=== PATIENT | male | born 1980 | race Two or more races ===

== ENCOUNTER 2020-09-12 17:36 | Observation (INO) | payer MEDICAID, OTHER ==
[~2020-09-12] VITALS: Ht 162.6 cm; Wt 62.4 kg
[2020-09-12 18:50] LABS: Urine Bacteria FEW /hpf (None Seen); Urine Blood Negative /uL (Negative); Urine Budding Yeast MODERATE /hpf (None Seen); Urine Mucus FEW (None Seen); Urine Specific Gravity 1.029 (1.001-1.035); Urine WBC 68 /hpf (0 - 3)
[2020-09-12 19:08] LABS: Eosinophils # (auto) 0 10 ^3/uL (0-0.8); Eosinophils % (auto) 0.2 % (0.0-7.0); Lymphocytes # (auto) 0.4 10 ^3/uL (0.4-5.4)
[2020-09-12 19:10] LABS: Basophils # (auto) 0 10 ^3/uL (0-0.2); Basophils % (auto) 0.3 % (0.0-2.0); Hematocrit 52.2 % (41.0-53.0); Hemoglobin 17.8 g/dL (13.5-17.5); Lymphocytes % (auto) 2.9 % (10.0-50.0); Mean Corpuscular Hemoglobin 29.6 pg (28.0-32.0); Mean Corpuscular Hgb Conc. 34.2 g/dL (32.0-36.0); Mean Corpuscular Volume 86.5 fL (80.0-100.0); Monocytes # (auto) 0.4 10 ^3/uL (0-1.3); Monocytes % (auto) 2.8 % (0.0-12.0); Neutrophils # (auto) 12.4 10 ^3/uL (1.6-8.6); Neutrophils % (auto) 93.8 % (37.0-80.0); Platelet Count (auto) 358 10^3/uL (140-450); Red Blood Cells 6.03 10^6/uL (4.5-5.90); Red Cell Distribution Width 15.3 % (11.8-14.3); White Blood Cell 13.2 10^3/uL (4.4-10.8)
[2020-09-12 19:26] LABS: Albumin 4.1 g/dL (3.4-5.0); Calcium 8.8 mg/dL (8.5-10.1); Potassium 3.9 mmol/L (3.5-5.1)
[2020-09-12 19:44] LABS: BUN/Creatinine Ratio 9.2; Bilirubin, Total 5.9 mg/dL (0.2-1.0); Total Protein 7.8 g/dL (6.4-8.2)
[2020-09-12 23:21] LABS: Alcohol, Urine < 3.0 mg/dL (0-10); Benzodiazephine Screen, Urine NEGATIVE (NEGATIVE); Cocaine Screen, Urine NEGATIVE (NEGATIVE); Phencyclidine Screen, Urine NEGATIVE (NEGATIVE)
[2020-09-12 23:29] LABS: Amphetamine Screen, Urine POSITIVE (NEGATIVE); Barbiturate Scree,Urine NEGATIVE (NEGATIVE); Cannabinoid Screen, Urine NEGATIVE (NEGATIVE); Opiate Scree,Urine NEGATIVE (NEGATIVE)
[2020-09-13 00:03] LABS: Albumin 3.6 g/dL (3.4-5.0); Bilirubin, Direct 2.6 mg/dL (0-0.2); Blood Alcohol < 3.0 mg/dL (0-5)
[2020-09-13 00:12] LABS: Alkaline Phosphatase 151 U/L (45-117); Bilirubin, Total 5.1 mg/dL (0.2-1.0)
[2020-09-13 00:52] LABS: Alanine Aminotransferase 5058 U/L (16-61); Aspartate Aminotransferase 4125 U/L (15-37)
[2020-09-13] MEDS ORDERED: ONDANSETRON HCL 4 MG/2 ML VIAL IV PRN (02:30)
[2020-09-13] MEDS ORDERED: MORPHINE SULF INJ 2 MG/ML SYRINGE 1ML IV PRN (02:30)
[2020-09-13] MEDS: SODIUM CHLORIDE 0.9% 1,000 ML IV SCH ×3 (03:12→16:58)
[2020-09-13 03:17] LABS: Acetaminophen < 2.0 ug/mL (10-30); Salicylate < 1.7 mg/dL (2.8-20.0)
--- NOTE | 2020-09-13 04:24 | NUR ---
MS admit from [facility] admitted to tele after no SBAR received. Patient oriented to JEMIMA CRUZ RN, [facility], room 298, and unit policies regarding patient care and visiting hours. Bed locked in lowest position, side rails up X2, call light within reach. No signs of SOB or distress. Patient weighed by bedscale and encouraged to call if they need something. All questions and concerns addressed, patient verbalized understanding.
[2020-09-13 05:17] VITALS: BP 113/65
--- NOTE | 2020-09-13 07:10 | NUR ---
Endorsed care to Lubna GOODE. Patient asleep in bed, locked in lowest position, side rails up X2, call light within reach. No signs of SOB or distress.
[2020-09-13 08:09] LABS: Albumin 3.2 g/dL (3.4-5.0); Calcium 8.3 mg/dL (8.5-10.1); Potassium 3.6 mmol/L (3.5-5.1)
[2020-09-13 08:18] LABS: Bilirubin, Total 5.5 mg/dL (0.2-1.0); Total Protein 6.5 g/dL (6.4-8.2)
[2020-09-13 08:42] VITALS: BP 107/68
--- NOTE | 2020-09-13 09:05 | NUR ---
Patient sleeping in bed comfortably. no complaints at this time.
[2020-09-13] MEDS: cefTRIAXone 1GM/50ML D5W 50 ML IV SCH (09:34)
[2020-09-13 09:35] LABS: Hematocrit 50.7 % (41.0-53.0); Hemoglobin 16.6 g/dL (13.5-17.5); Mean Corpuscular Hemoglobin 28.7 pg (28.0-32.0); Mean Corpuscular Hgb Conc. 32.7 g/dL (32.0-36.0); Mean Corpuscular Volume 87.8 fL (80.0-100.0); Platelet Count (auto) 332 10^3/uL (140-450); Red Blood Cells 5.78 10^6/uL (4.5-5.90); Red Cell Distribution Width 15.4 % (11.8-14.3); White Blood Cell 13.8 10^3/uL (4.4-10.8)
[2020-09-13 09:41] LABS: Basophils % (manual) 0 (0.0-2.0); Blast Cells 0; Eosinophils % (manual) 0 (0-7); Metamyelocytes % 0; Myelocytes % 0; Promyelocytes % 0; Reactive Lymphocytes 0
[2020-09-13 11:07] LABS: Hepatitis A Ab IgM Negative
[2020-09-13 11:08] LABS: Hepatitis B Surface Antigen Negative (Negative)
[2020-09-13 11:30] LABS: Hepatitis B Core IgM Negative
[2020-09-13 11:36] LABS: Hepatitis C Antibody Negative (Negative)
[2020-09-13 11:45] LABS: Band Neutrophils % (manual) 9; Lymphocytes % (manual) 3 (10.0-50.0); Monocytes % (manual) 3 (0-12)
--- NOTE | 2020-09-13 12:00 | NUR ---
Patient resting comfortably in bed. NS at 125ml/hr, patient has no complaints at this time.
[2020-09-13 13:00] VITALS: BP 105/64
[2020-09-13 16:39] VITALS: BP 122/72
--- NOTE | 2020-09-13 19:00 | NUR ---
Opening Shift Note Assumed care of patient, awake and alert. No S/S of distress/SOB or pain. Instructed on POC and to call for assist PRN, will continue to monitor for changes Q1hr and PRN.
[2020-09-13 21:54] VITALS: BP 118/68
[2020-09-14] MEDS: SODIUM CHLORIDE 0.9% 1,000 ML IV SCH ×3 (02:30→18:30)
[2020-09-14 05:00] VITALS: BP 113/71
--- NOTE | 2020-09-14 05:09 | NUR ---
PATIENT UPDATE PATIENT SLEPT COMFORTABLE ALL OF THE SHIFT. PATIENT IS EASILY AWAKENED. PATIENT SAID HE DOESN'T HAVE ANY NEEDS WHEN I HAVE CHECKED ON HIM.VITAL SIGNS ARE STABLE.WILL CONTINUE TO MONITOR.
[2020-09-14 06:54] LABS: Basophils # (auto) 0 10 ^3/uL (0-0.2); Basophils % (auto) 0.5 % (0.0-2.0); Eosinophils # (auto) 0.5 10 ^3/uL (0-0.8); Hematocrit 47.8 % (41.0-53.0); Hemoglobin 15.9 g/dL (13.5-17.5); Lymphocytes # (auto) 0.9 10 ^3/uL (0.4-5.4); Lymphocytes % (auto) 10.5 % (10.0-50.0); Mean Corpuscular Hemoglobin 28.8 pg (28.0-32.0); Mean Corpuscular Hgb Conc. 33.3 g/dL (32.0-36.0); Mean Corpuscular Volume 86.5 fL (80.0-100.0); Monocytes # (auto) 0.9 10 ^3/uL (0-1.3); Monocytes % (auto) 10.1 % (0.0-12.0); Neutrophils # (auto) 6.6 10 ^3/uL (1.6-8.6); Neutrophils % (auto) 73.9 % (37.0-80.0); Nucleated Red Blood Cells % 0.1 %; Platelet Count (auto) 282 10^3/uL (140-450); Red Blood Cells 5.53 10^6/uL (4.5-5.90); Red Cell Distribution Width 15.2 % (11.8-14.3)
[2020-09-14 07:14] LABS: Potassium 3.1 mmol/L (3.5-5.1)
--- NOTE | 2020-09-14 07:30 | NUR ---
Opening Shift Note Assuming care of patient at this time. Patient is awake and alert. Patient denies pain. Patient shows no signs or symptoms of distress or shortness of breath. Bed is locked and lowered with side rails up x2. Instructed patient on the plan of care for today and to call for assistance as needed.
[2020-09-14 07:50] LABS: Albumin 2.9 g/dL (3.4-5.0); BUN/Creatinine Ratio 9.8; Bilirubin, Total 4.1 mg/dL (0.2-1.0); Calcium 7.8 mg/dL (8.5-10.1); Magnesium 2.6 mg/dL (1.6-2.6); Total Protein 5.6 g/dL (6.4-8.2)
[2020-09-14 08:45] VITALS: BP 127/70
[2020-09-14 10:16] LABS: INR 1.92 (0.9-1.15)
[2020-09-14] MEDS: cefTRIAXone 1GM/50ML D5W 50 ML IV SCH (10:50)
[2020-09-14 12:49] VITALS: BP 118/70
[2020-09-14 16:38] VITALS: BP 116/73
--- NOTE | 2020-09-14 19:09 | NUR ---
Closing Shift Note Patient resting in bed. No distress noted. Report given. Will endorse care to the casino shift manager RN.
[2020-09-14 22:51] VITALS: BP 111/79
[2020-09-15] MEDS: SODIUM CHLORIDE 0.9% 1,000 ML IV SCH ×2 (02:30→11:23)
[2020-09-15 05:31] VITALS: BP 116/75
[2020-09-15 07:51] LABS: INR 1.37 (0.9-1.15)
[2020-09-15 08:06] LABS: Albumin 2.8 g/dL (3.4-5.0); Calcium 7.8 mg/dL (8.5-10.1); Potassium 3.4 mmol/L (3.5-5.1)
[2020-09-15 08:27] LABS: BUN/Creatinine Ratio 7.5; Bilirubin, Total 3.2 mg/dL (0.2-1.0); Total Protein 5.8 g/dL (6.4-8.2)
[2020-09-15 08:49] VITALS: BP_SYST 115; BP_SYST 123; BP_DIAS 65; BP_DIAS 72
[2020-09-15] MEDS ORDERED: POTASSIUM CHL 20 Meq TABLET PO ONE (10:00)
[2020-09-15] MEDS ORDERED: DOXYCYCLINE 100MG/250ML 250 ML IV SCH (10:30)
[2020-09-15 12:00] VITALS: BP 120/82
[2020-09-15] MEDS ORDERED: FLUCONAZOLE 200MG/100ML 100 ML IV SCH (12:00)
[2020-09-15 16:29] VITALS: BP 120/82
--- NOTE | 2020-09-15 17:27 | NUR ---
Discharge Discharge instructions given as ordered. Encourage to follow up with PMD as instructed. All questions and concerns addressed. Patient verbalized understanding. IV removed with catheter intact, pressure dressing applied. Patient taken to vehicle via wheelchair with all personal belongings, accompanied by staff and family member. No distress noted at time of departure.
== END 2020-09-15 18:00 | disposition home or self-care (01) ==
LOC: ER 17:36 → OVERFLOW 17:37 → INTOOBSV 17:37 → WEST WING 09-13 04:25
PROVIDERS: ADMIT Hospitalist; ATTEND Hospitalist
DX: B17.9 Acute viral hepatitis, unspecified (principal); F10.20 Alcohol dependence, uncomplicated; F15.90 Other stimulant use, unspecified, uncomplicated; N39.0 Urinary tract infection, site not specified; B96.89 Other specified bacterial agents as the cause of diseases classified elsewhere; D72.829 Elevated white blood cell count, unspecified; I10 Essential (primary) hypertension; R74.01 Elevation of levels of liver transaminase levels; R79.89 Other specified abnormal findings of blood chemistry; Z87.440 Personal history of urinary (tract) infections; Z79.899 Other long term (current) drug therapy
CPT/HCPCS: 36415; 74176; 76705; 80053; 80074; 80076; 80307; 80320; 80329; 81001; 82550; 83735; 85007; 85025; 85027; 85610; 86644; 86645; 86664; 87086; 87088; 87186; 96361; 96365; 96366; 96367; 96375; 99284; G0378; J0696; J1450; J2270; J2405; J3490; J7030